=== PATIENT | male | born 1950 | race Caucasian/White ===

== ENCOUNTER 2017-04-04 18:48 | Emergency (ER) | payer MEDICARE, OTHER ==
[2017-04-04] MEDS ORDERED: Ketorolac 30 MG/ML SDV IVPUSH ONE (19:16)
--- NOTE | 2017-04-04 19:23 | EDM.PDOC ---
[id number] [facility] Time Seen by Provider: 04/04/17 19:00 Source of Information: Reports: Patient, EMS History Limitations: Reports: No Limitations - History of Present Illness INITIAL COMMENTS - FREE TEXT/NARRATIVE: 66-year-old male, otherwise healthy has been feeling ill for the last several weeks. Generalized weakness, lethargy, decreased activity and appetite. He is running intermittent fevers. Over the past several days he's had a persistent aching in his neck, a headache posteriorly and it is started to hurt to cough or move. He vomited once prior to coming in. Earlier today he has taken some ibuprofen and Tylenol that she felt quite good, went to [employer] and did some shopping at a [employer]. Denies any chest pain, shortness of breath, cough, abdominal pain or diarrhea. He has had some increased urinary frequency. He has had several tick bites. Onset: Unknown/Unsure Duration: Week(s): (Hasn't felt well for several weeks) Location: Reports: Head, Neck Quality: Reports: Ache Severity: Moderate Improves with: Reports: Medication (Ibuprofen and Tylenol seemed to help) Worsens with: Reports: Movement (Movement or coughing) Associated Symptoms: Reports: Fever/Chills, Headaches, Loss of Appetite, Malaise , Nausea/Vomiting, Weakness. Denies: Confusion, Chest Pain, Cough, Rash (No rash but several tick bites), Shortness of Breath Headache Pain Score (Numeric/FACES): 3 - Related Data Allergies Allergy/AdvReac Type Severity Reaction Status Date / Time No Known Allergies Allergy Verified 04/04/17 18:52 Home Meds: Home Meds NK [No Known Home Meds] 04/04/17 [History] Past Medical History Oncologic (Cancer) History: Reports: Basal Cell Carcinoma - Past Surgical History HEENT Surgical History: Reports: Tonsillectomy Male Surgical History: Reports: Vasectomy Social & Family History - Tobacco Use Smoking Status *Q: Never Smoker - Caffeine Use Caffeine Use: Reports: Coffee, Soda - Recreational Drug Use Recreational Drug Use: No ED ROS GENERAL - Review of Systems Review Of Systems: ROS reveals no pertinent complaints other than HPI. ED EXAM, GENERAL - Physical Exam Exam: See Below Exam Limited By: No Limitations General Appearance: Alert, No Apparent Distress (Looks uncomfortable but not distressed.) Eye Exam: Bilateral Eye: Normal Inspection (No jaundice) Head: Atraumatic Neck: Supple, Non-Tender, Other (Movement and palpation of the neck actually "feels good".). No: Limited Range of Motion Respiratory/Chest: No Respiratory Distress, Lungs Clear Cardiovascular: Regular Rate, Rhythm. No: Tachycardia, Extra Beats GI/Abdominal: Soft, Non-Tender Back Exam: Normal Inspection Extremities: Pedal Edema (A small amount of ankle edema is present bilaterally, slightly worse on the left which is chronic) Neurological: Alert, Oriented, No Motor/Sensory Deficits Psychiatric: Normal Affect, Normal Mood Skin Exam: Warm, Dry Course - Vital Signs Last Recorded V/S: Last Vital Signs Temp 99 F 04/04/17 18:54 Pulse 73 04/04/17 21:04 Resp 12 04/04/17 21:04 BP 147/97 H 04/04/17 21:04 Pulse Ox 98 04/04/17 21:04 - Orders/Labs/Meds Orders: Active Orders 24 hr Category Date Time Status BABESIA MICROTI IGG AND IGM [REF] Stat Lab 04/04/17 19:25 Received EHRLICHIA CHAFFEENSIS, IGG&IGM [REF] Stat Lab 04/04/17 19:25 Received LYME AB SCREEN RFLX [REF] Stat Lab 04/04/17 19:25 Received Labs: Laboratory Tests 04/04/17 04/04/17 04/04/17 Range/Units 19:25 19:25 20:17 WBC 13.2 H (4.5-11.0) K/uL RBC 4.44 (4.30-5.90) M/uL Hgb 13.9 (12.0-15.0) g/dL Hct 39.3 L (40.0-54.0) % MCV 89 (80-98) fL MCH 31 (27-31) pg MCHC 35 (32-36) % Plt Count 229 (150-400) K/uL Neut % (Auto) 83 H (36-66) % Lymph % (Auto) 10 L (24-44) % [place] % (Auto) 7 H (2-6) % Eos % (Auto) 0 L (2-4) % Baso % (Auto) 0 (0-1) % Sodium 132 L (140-148) mmol/L Potassium 4.1 (3.6-5.2) mmol/L Chloride 99 L (100-108) mmol/L Carbon Dioxide 26 (21-32) mmol/L Anion Gap 11.1 (5.0-14.0) mmol/L BUN 20 H (7-18) mg/dL Creatinine 1.1 (0.8-1.3) mg/dL Est Cr Clr Drug Dosing 68.45 mL/min Estimated GFR (MDRD) > 60 (>60) Glucose 132 H (74-106) mg/dL Calcium 8.1 L (8.5-10.1) mg/dL Total Bilirubin 0.8 (0.2-1.0) mg/dL AST 19 (15-37) U/L ALT 30 (12-78) U/L Alkaline Phosphatase 28 L (46-116) U/L Total Protein 6.8 (6.4-8.2) g/dL Albumin 3.7 (3.4-5.0) g/dL Globulin 3.1 (2.3-3.5) g/dL Albumin/Globulin Ratio 1.2 (1.2-2.2) Urine Color Yellow Urine Appearance Slightly cloudy Urine pH 6.5 (4.5-8.0) Ur Specific [place] 1.020 (1.008-1.030) Urine Protein Negative (NEGATIVE) mg/dL Urine Glucose (UA) Normal (NEGATIVE) mg/dL Urine Ketones 15 H (NEGATIVE) mg/dL Urine Occult Blood Negative (NEGATIVE) Urine Nitrite Negative (NEGAITVE) Urine Bilirubin Negative (NEGATIVE) Urine Urobilinogen Normal (NORMAL) mg/dL Ur Leukocyte Esterase Negative (NEGATIVE) Urine RBC 0-5 (0-5) Urine WBC 0-5 (0-5) Ur Epithelial Cells Rare Amorphous Sediment Moderate Urine Bacteria Few Urine Mucus Moderate Meds: Medications Discontinued Medications Generic Name Dose Route Start Last Admin Trade Name Freq PRN Reason Stop Dose Admin Hydromorphone HCl 0.5 mg 04/04/17 21:00 04/04/17 21:04 Dilaudid IVPUSH 04/04/17 21:01 0.5 mg ONETIME ONE Administration Sodium Chloride 1,000 mls @ 1,000 mls/hr 04/04/17 19:30 04/04/17 19:25 Normal Saline IV 1,000 mls/hr ASDIRECTED TAMAR Administration Sodium Chloride 1,000 mls @ 1,000 mls/hr 04/04/17 20:45 04/04/17 20:42 Normal Saline IV 1,000 mls/hr ASDIRECTED TAMAR Administration Ketorolac Tromethamine 30 mg 04/04/17 19:16 04/04/17 19:21 Toradol IVPUSH 04/04/17 19:17 30 mg ONETIME ONE Administration - Re-Assessments/Exams Free Text/Narrative Re-Assessment/Exam: 04/04/17 19:22 Patient will be hydrated with 1 L of normal saline, given 30 mg of Toradol IV. CBC, CMP, lymes, babesiosis and erhlichiosis along with a UA were obtained. 04/04/17 21:02 After 1 L of normal saline the patient was able to give us a small sample of urine which was normal other than ketones. White count was mildly elevated at 13.2, rest of his labs were reassuring. Patient improved after the Toradol and fluids. He still had some significant localized tenderness in his neck and around C6-C7, so 0.5 mg of Dilaudid IV were given and after a long discussion of treatment options with the patient and his family we decided to start him on doxycycline pending the remaining labs. He was also given some Flexeril and 6 hydrocodone for extra pain control. He will return if worsening or concerns. Departure - Departure Time of Disposition: 22:02 Disposition: Home, Self-Care 01 Condition: good Clinical Impression: Headache in back of head Fever Qualifiers: Fever type: unspecified Qualified Code(s): R50.9 - Fever, unspecified - Discharge Information Instructions: Muscle Pain, Adult Referrals: PCP,None [Primary Care Provider] - Forms: ED Department Discharge Care Plan Goals: Fluids, rest, and ibuprofen should help. Take prescription medications, antibiotic and muscle relaxers as well as pain medications as directed. Return anytime if worsening such as increased fever pain. Also consider recheck in 3- 4 days if not improving satisfactorily. The remainder of your lab reports should be available towards the end of this week. - My Orders Last 24 Hours: My Active Orders 04/04/17 19:25 BABESIA MICROTI IGG AND IGM [REF] Stat EHRLICHIA CHAFFEENSIS, IGG&IGM [REF] Stat LYME AB SCREEN RFLX [REF] Stat - Assessment/Plan Last 24 Hours: My Active Orders 04/04/17 19:25 BABESIA MICROTI IGG AND IGM [REF] Stat EHRLICHIA CHAFFEENSIS, IGG&IGM [REF] Stat LYME AB SCREEN RFLX [REF] Stat
[2017-04-04] MEDS ORDERED: Sodium Chloride 0.9% 1,000 ML IV SCH ×2 (19:30→20:45)
[2017-04-04] MEDS ORDERED: HYDROmorphone 0.5 MG/0.5 ML Syringe IVPUSH ONE (21:00)
[2017-04-04 21:05] VITALS: BP 147/97
== END 2017-04-04 22:00 | disposition home or self-care (01) ==
LOC: JP.ED 18:48
DX: R51 Headache (principal); R50.9 Fever, unspecified; Z98.52 Vasectomy status; Z98.890 Other specified postprocedural states; Z85.828 Personal history of other malignant neoplasm of skin
CPT/HCPCS: 80053; 81001; 85025; 86618; 86666; 86753; 96361; 96374; 99285; J1170; J1885; J7040; 36415; 99284

== ENCOUNTER 2017-04-06 04:54 | Emergency (ER) | payer MEDICARE, OTHER ==
[2017-04-06] MEDS ORDERED: HYDROmorphone 0.5 MG/0.5 ML Syringe IVPUSH ONE ×2 (05:21→07:18)
[2017-04-06] MEDS ORDERED: Sodium Chloride 0.9% 1,000 ML IV SCH (05:30)
--- NOTE | 2017-04-06 06:28 | EDM.PDOC ---
[id number] NECK PAIN Time Seen by Provider: 04/06/17 06:00 Source of Information: Reports: Patient, Family History Limitations: Reports: No Limitations - History of Present Illness INITIAL COMMENTS - FREE TEXT/NARRATIVE: 66-year-old male who was evaluated 2 days ago with persistent headache and neck pain and intermittent fevers was doing better yesterday but overnight developed a more intense headache again. Mild nausea but no vomiting, no fever or chills. Some mild to moderate photophobia is present. He is also developing some tingling in his hands. The neck pain has lessened. Onset: Gradual Location: Reports: Head Quality: Reports: Ache, Pressure, Stabbing Severity: Severe Improves with: Reports: Other (Pain medication has helped) Associated Symptoms: Reports: Loss of Appetite, Malaise. Denies: Confusion, Shortness of Breath Head Pain Score (Numeric/FACES): 7 - Related Data Allergies Allergy/AdvReac Type Severity Reaction Status Date / Time No Known Allergies Allergy Verified 04/04/17 18:52 Home Meds: Home Meds NK [No Known Home Meds] 04/04/17 [History] Past Medical History Oncologic (Cancer) History: Reports: Basal Cell Carcinoma - Past Surgical History HEENT Surgical History: Reports: Tonsillectomy Male Surgical History: Reports: Vasectomy Social & Family History - Tobacco Use Smoking Status *Q: Never Smoker - Caffeine Use Caffeine Use: Reports: Coffee - Recreational Drug Use Recreational Drug Use: No ED ROS GENERAL - Review of Systems Review Of Systems: See Below Constitutional: Reports: Fever (A few days ago), Malaise HEENT: Denies: Hearing Loss, Vision Change Respiratory: Denies: Shortness of Breath, Cough Cardiovascular: Denies: Chest Pain GI/Abdominal: Reports: Nausea. Denies: Abdominal Pain, Vomiting : Reports: Frequency (Had some increased urinary frequency 2 days ago but that has resolved) Musculoskeletal: Reports: Neck Pain Skin: Reports: No Symptoms Neurological: Reports: Headache Psychiatric: Reports: No Symptoms - Physical Exam Exam: See Below Exam Limited By: No Limitations General Appearance: Alert, Moderate Distress Eye Exam: Bilateral Eye: EOMI Neck: Tender Midline. No: Lymphadenopathy (R), Lymphadenopathy (L) Respiratory/Chest: No Respiratory Distress, Lungs Clear Cardiovascular: Regular Rate, Rhythm Neuro Exam (Abbreviated): Alert, Oriented, Other (Some bilateral mild weak grasp strength possibly from effort due to feeling poorly) Course - Vital Signs Last Recorded V/S: Last Vital Signs Temp 98.3 F 04/06/17 05:05 Pulse 61 04/06/17 08:07 Resp 16 04/06/17 08:07 BP 137/97 H 04/06/17 08:07 Pulse Ox 97 04/06/17 08:07 - Orders/Labs/Meds Orders: Active Orders 24 hr Category Date Time Status Cervical Spine wo Cont [CT] Stat Exams 04/06/17 05:23 Taken Head wo Cont [CT] Stat Exams 04/06/17 05:23 Taken Labs: Laboratory Tests 04/06/17 04/06/17 04/06/17 Range/Units 05:28 05:28 05:28 WBC 9.4 (4.5-11.0) K/uL RBC 3.87 L (4.30-5.90) M/uL Hgb 12.2 (12.0-15.0) g/dL Hct 33.9 L (40.0-54.0) % MCV 88 (80-98) fL MCH 32 H (27-31) pg MCHC 36 (32-36) % Plt Count 194 (150-400) K/uL Neut % (Auto) 75 H (36-66) % Lymph % (Auto) 15 L (24-44) % [place] % (Auto) 10 H (2-6) % Eos % (Auto) 0 L (2-4) % Baso % (Auto) 0 (0-1) % ESR 21 H (0-20) mm/hr Sodium 131 L (140-148) mmol/L Potassium 3.8 (3.6-5.2) mmol/L Chloride 96 L (100-108) mmol/L Carbon Dioxide 25 (21-32) mmol/L Anion Gap 13.8 (5.0-14.0) mmol/L BUN 18 (7-18) mg/dL Creatinine 1.0 (0.8-1.3) mg/dL Est Cr Clr Drug Dosing 74.99 mL/min Estimated GFR (MDRD) > 60 (>60) Glucose 113 H (74-106) mg/dL Calcium 7.6 L (8.5-10.1) mg/dL C-Reactive Protein (0.0-0.3) mg/dL 04/06/17 Range/Units 05:28 WBC (4.5-11.0) K/uL RBC (4.30-5.90) M/uL Hgb (12.0-15.0) g/dL Hct (40.0-54.0) % MCV (80-98) fL MCH (27-31) pg MCHC (32-36) % Plt Count (150-400) K/uL Neut % (Auto) (36-66) % Lymph % (Auto) (24-44) % [place] % (Auto) (2-6) % Eos % (Auto) (2-4) % Baso % (Auto) (0-1) % ESR (0-20) mm/hr Sodium (140-148) mmol/L Potassium (3.6-5.2) mmol/L Chloride (100-108) mmol/L Carbon Dioxide (21-32) mmol/L Anion Gap (5.0-14.0) mmol/L BUN (7-18) mg/dL Creatinine (0.8-1.3) mg/dL Est Cr Clr Drug Dosing mL/min Estimated GFR (MDRD) (>60) Glucose (74-106) mg/dL Calcium (8.5-10.1) mg/dL C-Reactive Protein 7.19 H (0.0-0.3) mg/dL Meds: Medications Discontinued Medications Generic Name Dose Route Start Last Admin Trade Name Freq PRN Reason Stop Dose Admin Hydromorphone HCl 0.5 mg 04/06/17 05:21 04/06/17 05:30 Dilaudid IVPUSH 04/06/17 05:22 0.5 mg ONETIME ONE Administration Hydromorphone HCl 0.5 mg 04/06/17 07:18 04/06/17 07:28 Dilaudid IVPUSH 04/06/17 07:19 0.5 mg ONETIME ONE Administration Sodium Chloride 1,000 mls @ 500 mls/hr 04/06/17 05:30 04/06/17 05:33 Normal Saline IV 500 mls/hr ASDIRECTED TAMAR Administration Ceftriaxone Sodium 2 gm/ 50 mls @ 100 mls/hr 04/06/17 06:38 04/06/17 06:48 Sodium Chloride IV 04/06/17 07:07 100 mls/hr ONETIME ONE Administration - Re-Assessments/Exams Free Text/Narrative Re-Assessment/Exam: 04/06/17 06:44 CBC now reveals a normal white count. CRP is elevated at 7.1. Cervical spine CT is normal but head CT shows effacement of the left occipital horn with surrounding edema. An MRI is recommended. This was discussed with the patient and his , along with neurology and [facility] and acceptance for admission to [facility] was obtained. The patient and his want to go by private car. He was given 2 g of Rocephin IV in the lock left in place. Departure - Departure Time of Disposition: 08:09 Disposition: DC/Tfer to Other Condition: fair Clinical Impression: Abnormal CT of brain Acute intractable headache Qualifiers: Headache type: unspecified Qualified Code(s): R51 - Headache - Discharge Information Instructions: Migraine Headache, [id number] Referrals: PCP,None [Primary Care Provider] - Forms: ED Department Discharge Care Plan Goals: Patient will go directly to [facility] to be admitted through the emergency room to the neurology service, accepted by Dr. Keith - My Orders Last 24 Hours: My Active Orders 04/06/17 05:23 Cervical Spine wo Cont [CT] Stat Head wo Cont [CT] Stat - Assessment/Plan Last 24 Hours: My Active Orders 04/06/17 05:23 Cervical Spine wo Cont [CT] Stat Head wo Cont [CT] Stat
[2017-04-06] MEDS ORDERED: cefTRIAXone 2 GM in Sodium Chloride 0.9% 50 ML IV ONE (06:38)
[2017-04-06 08:08] VITALS: BP 137/97
== END 2017-04-06 08:12 | disposition other institution (70) ==
LOC: JP.ED 04:54
DX: R51 Headache (principal); R90.89 Other abnormal findings on diagnostic imaging of central nervous system; Z98.890 Other specified postprocedural states; Z98.52 Vasectomy status
CPT/HCPCS: 36415; 70450; 72125; 80048; 85025; 85651; 86140; 96361; 96365; 96375; 96376; 99284; 99285; J0696; J1170; J7040; J7050